=== PATIENT | female | born 1995 | race Caucasian/White ===

== ENCOUNTER → 2022-10-31 | Outpatient (REF) ==
[~2022-10-31] MED LIST: ACET325C5 PO; DOXY1TAB59 PO; FOLI1TAB11 PO; IBUP-1022 PO; PRENTAB9 PO; PROG1CAP9 PV; VALT500T PO
== END ==
LOC: M PLAIMG 10:31
PROVIDERS: ATTEND Internal Medicine
DX: M54.50 Low back pain, unspecified (principal)

== ENCOUNTER → 2023-08-10 | Outpatient (CLI) | payer OTHER | LOC: M WUC 13:45 | PROVIDERS: ATTEND Student in an Organized Health Care Education/Training Program | DX: M79.641 Pain in right hand (principal) ==

== ENCOUNTER → 2023-10-26 | Outpatient (REF) | LOC: M PLAIMG 12:29 | PROVIDERS: ATTEND Internal Medicine | DX: M54.50 Low back pain, unspecified (principal) ==